=== PATIENT | female | born 1990 | race Caucasian/White ===

== ENCOUNTER 2019-05-12 01:31 | Day surgery (SDC) | payer OTHER, SELFPAY ==
[2019-05-07 09:20] VITALS: BMI 28.1
--- NOTE | 2019-05-12 11:42 | PM.IMHP ---
H&P: HPI History of Present Illness Chief complaint: Irregular Bleeding Narrative: 28 y/o who is breast feeding her 3 month old. She is having heavy episodes of vaginal bleeding lasting 3-5 days each, occurring every 2 weeks. She takes Micronor. Ultrasound exam in the office demonstrates an unremarkable endometrium and functional type changes within both ovaries. Review of Systems Review of Systems: All systems reviewed & are unremarkable except as noted in HPI and below PMFSH Past Medical History Medical History (Updated 05/12/19 @ 11:51 by Bridger Baron MD) Kidney stones Post depression Surgical History Surgical History Hx of cholecystectomy Family History Family History Sibling Diabetes type I Neurofibromatosis type 1-like syndrome Son Genetic disorder Social History Social History Smoking status: Never smoker Substance use: never Gender identity (if verbalized by the patient): Female Spiritual care concerns: No Comments Past OB: x 3, largest 8#7oz. 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 No history of STI or of abnormal pap. Additional Past Medical History: had a blood clot in a vessel in her chest. This was not a DVT and did not require anticoagulation. Negative for Factor V Leiden and Prothrombin [id number] gene mutations. Meds Home Medications and Allergies Home Medications Medication Instructions Recorded Confirmed Type 1 tablet PO DAILY 01/30/19 05/07/19 History acetaminophen [Mapap 650 mg PO Q6H PRN #30 tablet 02/01/19 05/07/19 Rx (acetaminophen)] ibuprofen 600 mg PO Q6H PRN #30 tablet 02/01/19 05/07/19 Rx lanolin [Thl-A-Lmkqal] 1 applic TOPICAL PRN PRN #1 g 02/01/19 05/07/19 Rx Allergies Allergy/AdvReac Type Severity Reaction Status Date / Time No Known Allergies Allergy Unverified 05/07/19 09:20 Exam Const: Orientation/consciousness: patient oriented x3 Other: Well-developed, well-nourished female in no acute distress. Neck: Thyroid: thyroid normal Lymphatic: no lymphadenopathy noted (in neck, axilla or inguinal nodes) Resp: Effort & Inspection: normal respiratory effort Auscultation: clear to auscultation bilaterally Cardio: Rate: regular rate Rhythm: regular rhythm Heart sounds: S1 normal heart sound present and S2 normal heart sound present GI: Other: ABD: Soft, nontender, nondistended. No guarding or rebound tenderness. No hepatosplenomegaly. : General: Yes no CVA tenderness Other: External genitalia: normal female hair distribution, without lesion. Urethral meatus: no lesion, non prolapsed. Bladder: no mass, nontender Vagina: well-estrogenized, without lesion or discharge. No cystocele or rectocele. Cervix: no lesion or discharge. Uterus: small, anteverted, freely mobile, nontender Adnexa: no mass or tenderness. Anus/perineum: no lesions, nontender Back/Spine/Pelvis: Back: no CVA tenderness Skin: General skin exam: normal color and no rashes or lesions noted Neuro: General: patient oriented x3 Extrem: Other: Extremities: nontender with no edema Psych: Mental Status: mental status grossly normal Affect: normal affect Assessment and Plan Assessment and plan (1) Episode of heavy vaginal bleeding: Code(s): N93.9 - Abnormal uterine and vaginal bleeding, unspecified Status: Acute Assessment and Plan: Offered dilation and sharp curettage. She understands risks of surgery to include risks of anesthesia, risks of pain, infection, bleeding, blood products, thromboembolic phenomena and damage to adjacent structures such as bowel, bladder, ureters, blood vessels and nerves. She understands all these risks and elects to proceed with surgery.
[2019-05-12] MEDS: LACTATED RINGERS 1,000 ML 30 ML IV CONT ×2 (13:24→15:32)
[2019-05-12 13:46] VITALS: BP 124/67; PULSE 72; RESP 20; TEMP 36.4; O2SAT 100
--- NOTE | 2019-05-12 13:53 | WPDANESEPPF ---
Anes - Initial Pre Proc Eval Procedure: Operation Date: 05/12/19 14:00 Proposed Procedures p Hysteroscopy, Dilation and Curettage - Bridger Baron MD Date/Time: 05/12/19 13:53 Surgeon: Bridger Baron MD Pre Op Diagnosis: Irregular Bleeding Patient Data Age: 28 Gender: F Height: 1.7 m Weight: 82.4 kg Last Vital Signs Temp 36.4 C L 05/12/19 13:46 Pulse 72 05/12/19 13:46 Resp 20 05/12/19 13:46 BP 124/67 05/12/19 13:46 Pulse Ox 100 05/12/19 13:46 Allergies Allergy/AdvReac Type Severity Reaction Status Date / Time No Known Allergies Allergy Unverified 05/07/19 09:20 Home Medications Medication Instructions Recorded Confirmed Type 1 tablet PO DAILY 01/30/19 05/12/19 History acetaminophen [Mapap 650 mg PO Q6H PRN #30 tablet 02/01/19 05/12/19 Rx (acetaminophen)] ibuprofen 600 mg PO Q6H PRN #30 tablet 02/01/19 05/12/19 Rx lanolin [Qsi-P-Fihbll] 1 applic TOPICAL PRN PRN #1 g 02/01/19 05/12/19 Rx Patient hx anesthesia problems: none Family hx anesthesia problems: none PMFSH Past Medical History Medical History (Updated 05/12/19 @ 11:51 by Bridger Baron MD) Kidney stones Post depression Surgical History Surgical History Hx of cholecystectomy Family History Family History Sibling Diabetes type I Neurofibromatosis type 1-like syndrome Son Genetic disorder Social History Social History Smoking status: Never smoker Substance use: never Gender identity (if verbalized by the patient): Female Spiritual care concerns: No Anes - Eval Final PreProcedure Day of Procedure 05/12/19 13:53 Patient weight: overweight Heart: regular rate and rhythm Lungs: clear to auscultation and normal air movement Airway: Mallampati scale class II Neurological: alert and oriented Last oral intake: >/= 8 hours ASA classification: II Emergent: no Anesthetic plan: proceed Anesthesia type and monitoring: general GIVS and standard monitoring Informed Consent: The patient's anesthetic plan and its attendant risks and benefits were discussed with the patient/family/POA. Questions were solicited and answers provided to the satisfaction of the patient/family/POA.
[2019-05-12] MEDS: KETOROLAC 30 MG/ML VIAL (*BKC) 15 MG IV PUSH (15:10)
--- NOTE | 2019-05-12 15:31 | PM.PROC ---
Procedure Note - Detailed Date of procedure: 05/12/19 Pre-op diagnosis: Irregular Bleeding Menometrorrhagia Post-op diagnosis: same Procedure performed: Hysteroscopy D&C Description of procedure: The patient was taken to the operating room where she was prepared and draped in the usual sterile fashion in the dorsal lithotomy position. The bladder was drained with a red rubber catheter. A sterile speculum was placed into the vagina. The anterior lip of the cervix was grasped with single-tooth tenaculum. Ten mL of 1% lidocaine was administered in a paracervical block. The cervix was then gently dilated using Hegar dilators until a 7 mm dilator could be passed. Hysteroscopy was performed using sterile saline as a distention medium. Findings are as noted above. Sharp curettage was then performed, and endometrial curettings were collected on a Telfa pad and passed off to be sent to pathology. Hemostasis was excellent. Sponge, lap, needle and instrument counts were correct. The patient was awakened and taken to the recovery room in stable condition. I was present and scrubbed through the entire procedure. Implants: None Anesthesia: MAC and local (paracervical block) Surgeon: Bridger Baron MD Estimated blood loss (mL): 5 Drains: No Packing: No Pathology: yes (endometrial curettings) Complications: None Condition: stable Disposition: PACU Findings: Endometrial tissue was thick. Otherwise, the endometrial cavity was unremarkable. Both tubal ostia were seen.
[2019-05-12 15:32] VITALS: BP 122/84; PULSE 107; RESP 16; O2SAT 99
[2019-05-12 16:00] VITALS: BP 102/58; PULSE 68; RESP 16
[2019-05-12 16:25] VITALS: BP 102/58; PULSE 62; RESP 16
== END 2019-05-12 16:32 | disposition home or self-care (01) ==
PROVIDERS: Visit Provider Obstetrics & Gynecology
PROC: 0U5B8ZZ Destruction of Endometrium, Via Natural or Artificial Opening Endoscopic (ICD-10-PCS; CPT 58563; principal; 2019-05-12 14:00)
DX: N92.1 Excessive and frequent menstruation with irregular cycle (principal)
CPT/HCPCS: 58558; 88305; A9270; J0131; J1100; J1885; J2250; J2405; J2704; J3010; J7030; J7120

== ENCOUNTER 2020-12-15 06:29 | Inpatient (IN) | payer BC, SELFPAY ==
[2020-12-15] VITALS (104 sets, daily range): BP systolic 84–132; BP diastolic 52–98; PULSE 40–112; RESP 18–20; TEMP 36.1–36.6; O2SAT 94–100; BMI 31.1
--- NOTE | 2020-12-15 06:46 | LDADM ---
This patient, Lilliana Mead, was admitted to Labor/Delivery/Recovery 104 on 12/15/20 at 06:29. Plans for labor, pain management and were discussed with patient. Patient/family oriented to hospital policies and general routines including ID bracelet, bed and alarms, visiting hours, pain management, procedures, bathroom and other care routines, personal items, smoking policy, room service/diet and guest tray routines, security routines, and visiting hours. Patient/Family are encouraged to report perceived risks to care and to ask questions if they do not understand what they are told or what they should do. See OBIX for further documentation.
[2020-12-15] MEDS: LACTATED RINGERS 1,000 ML 125 ML IV CONT ×2 (06:57→11:45)
[2020-12-15] MEDS: AMPICILLIN 2 GM/NS 100 ML 2 GM/100 ML BAG IVPB (06:58)
[2020-12-15] MEDS: OXYTOCIN 30 UNITS/NS 500 ML 30 UNITS/500 ML BAG IV CONT (06:58)
[2020-12-15 07:14] LABS: Basophils Absolute Auto 0.1 K/mm3 (0.0-0.1); Basophils Percent Auto 0.6 % (0.2-1.2); Eosinophils Absolute Auto 0.1 K/mm3 (0-0.3); Eosinophils Percent Auto 1.1 % (0-4.4); Hematocrit 36.8 % (37.0-47.0); Hemoglobin 12.2 g/dL (12.0-15.0); Immature Granulocyte Absolute 0.07 K/mm3 (0.00-0.031); Immature Granulocyte Percent A 0.6 % (0-0.5); Lymphocytes Absolute Auto 2.66 K/mm3 (0.9-3.2); Lymphocytes Percent Auto 23.1 % (18.3-44.2); Mean Corpuscular HGB Conc 33.2 g/dl (32-36); Mean Corpuscular Volume 84.4 fl (80-100); Mean Platelet Volume 11.3 fl (7.4-10.4); Monocytes Absolute Auto 0.8 K/mm3 (0.1-0.6); Monocytes Percent Auto 6.6 % (2.6-8.5); Neutrophils Absolute Auto 7.8 K/mm3 (1.3-6.7); Platelet Count Result 284 k/mm3 (150-375); Red Blood Count 4.36 M/mm3 (4.2-5.4); Red Cell Distribution Width 14.1 % (11.5-14.5); White Blood Count 11.5 K/mm3 (4.5-10.0)
--- NOTE | 2020-12-15 08:39 | WPDOBADMIT ---
Obstetrics - Admit Note Admission Note: record reviewed. Additions to the history and/or subsequent changes in the physical findings follow. 30 y/o at 39 weeks here for scheduled induction of labor. GBS pos. otherwise uncomplicated. AVSS NST reactive TOCO: contractions every 3 min ABD soft, nontender, gravid, vertex EXT nontender Cervix 2/80/-2. AROM with clear fluid. A: IUP at term, desiring induction of labor. GBS pos. P: Oxytocin. Anticipate .
[2020-12-15] MEDS: AMPICILLIN 1 GM/NS 50 ML 1 GM/50 ML BAG IVPB ×2 (11:00→14:53)
[2020-12-15 11:51] LABS: Rapid Plasma Reagin Non-Reactive (NonReactive)
--- NOTE | 2020-12-15 12:16 | WPDANESEPP ---
Anes - Eval Pre Procedure Procedure: labor Epidural Date/Time: 12/15/20 12:16 Surgeon: Loraine Preop Diagnosis: Labor Pain Pre Op Diagnosis: IOL Patient Data Age: 30 Gender: F Height: 1.7 m Weight: 90 kg Last Vital Signs Temp 36.2 C L 12/15/20 11:01 Pulse 76 12/15/20 12:15 Resp 18 12/15/20 11:01 BP 105/77 12/15/20 12:15 Pulse Ox 99 12/15/20 12:11 Allergies Allergy/AdvReac Type Severity Reaction Status Date / Time No Known Allergies Allergy Unverified 05/07/19 09:20 Home Medications Medication Instructions Recorded Confirmed Type PNV cmb#95-ferrous fumarate-FA 1 tablet PO DAILY 12/02/20 12/15/20 History [] Laboratory Tests 12/15/20 12/15/20 12/15/20 06:44 06:44 06:44 WBC 11.5 K/mm3 H K/mm3 (4.5-10.0) RBC 4.36 M/mm3 M/mm3 (4.2-5.4) Hgb 12.2 g/dL g/dL (12.0-15.0) Hct 36.8 % L % (37.0-47.0) MCV 84.4 fl fl (80-100) MCH 28.0 pg pg (26-34) MCHC 33.2 g/dl g/dl (32-36) RDW 14.1 % % (11.5-14.5) Plt Count 284 k/mm3 k/mm3 (150-375) MPV 11.3 fl H fl (7.4-10.4) Immature Gran % (Auto) 0.6 % H % (0-0.5) Neut % (Auto) 68.0 % % (45.5-73.1) Lymph % (Auto) 23.1 % % (18.3-44.2) [place] % (Auto) 6.6 % % (2.6-8.5) Eos % (Auto) 1.1 % % (0-4.4) Baso % (Auto) 0.6 % % (0.2-1.2) Lymph # (Auto) 2.66 K/mm3 K/mm3 (0.9-3.2) [place] # (Auto) 0.8 K/mm3 H K/mm3 (0.1-0.6) Eos # (Auto) 0.1 K/mm3 K/mm3 (0-0.3) Baso # (Auto) 0.1 K/mm3 K/mm3 (0.0-0.1) Abs Immat Gran (auto) 0.07 K/mm3 H K/mm3 (0.00-0.031) Absolute Neuts (auto) 7.8 K/mm3 H K/mm3 (1.3-6.7) Absolute Nucleated RBC 0.0 K/mm3 K/mm3 (0.0-0.012) Nucleated RBC % 0.0 % % (0.0-0.2) RPR Non-reactive (NonReactive) Blood Type A Positive Antibody Screen Negative : gestational age (, ANTONI 12/22/20) Patient hx anesthesia problems: none Family hx anesthesia problems: none Results Review: All pre-operative results and documents have been reviewed as part of the pre-operative evaluation. [facility] Past Medical History Medical History Kidney stones Post depression Surgical History Surgical History Hx of cholecystectomy Family History Family History Sibling Diabetes type I Neurofibromatosis type 1-like syndrome Son Genetic disorder Social History Social History Smoking status: Never smoker Substance use: never Gender identity (if verbalized by the patient): Female Spiritual care concerns: No Exam Day of Procedure 12/15/20 12:16 Patient weight: normal Heart: regular rate and rhythm Lungs: normal air movement Airway: Mallampati scale class II Neurological: alert and oriented
--- NOTE | 2020-12-15 12:38 | PM.OBPNLAB ---
Pain Control Date/time seen: 12/15/20 12:38 Comments: Getting more comfortable with epidural Pelvic Exam Dilation (cm): 4 Effacement (%): 50 station: -2 Contractions Contraction frequency: 3 Contraction pattern: Regular Status status: Category l Assessment and Plan Plan: continuous present management
--- NOTE | 2020-12-15 15:46 | PM.OBPRVD ---
OB - Delivery Note Procedure Delivery date: 12/15/20 Procedure: Induction of labor with Induction method: AROM and per pitocin protocol Delivery monitor: external FHT, external uterine and internal uterine Route of delivery: Laceration Description: Perineal - 1st Degree Delivery repair: vicryl (3-0) Specimen: Yes (cord blood) Quantitative Blood Loss (ml): 45 Anesthesia type: Epidural Disposition: PACU Complications: None Narrative: 30 y/o at 39 weeks gestation who presented to the hospital for induction of labor. She received ampicillin for GBS colonization. Oxytocin was administered intravenously. Amniotomy was performed with return of clear fluid. She received an epidural for pain control. Her labor progressed and her cervix dilated completely. She pushed with good effort and delivered the 's head to the perineum. A loose nuchal cord was splinted and the body delivered. The cord was reduced. The nose and mouth were bulb suctioned. After a delay, the cord was clamped and cut. The was handed off the field. Cord blood was collected. The placenta delivered spontaneously and was grossly normal in appearance. The usual 3 vessel cord was noted. A first degree midline perineal laceration was sustained. This was reapproximated using 3 0 Vicryl in interrupted, figure of eight fashion. Excellent hemostasis resulted as did excellent reapproximation of the normal anatomy. Needle and instrument counts were correct. The patient was taken to recovery room in stable condition. The went to the nursery in stable condition. I was present and scrubbed for the entire delivery. Baby Date of : 12/15/20 Time of : 15:34 Weeks of gestation at delivery: 39 Infant gender: Male Weight (pounds): 7 Weight (ounces): 15 presentation: vertex position: Left Occiput Anterior Placenta delivery description: Spontaneous and Normal Configuration cord vessel description: 3 Vessels, Nuchal Cord and Delayed Cord Clamping score one minute: 9 score five minutes: 9
--- NOTE | 2020-12-15 15:49 | PM.OBDSVD ---
DS: Admitting Diagnosis Discharge Date 12/15/20 Admitting Diagnosis IUP at 39 weeks Favorable cervix GBS colonization DS: Discharge Diagnosis Discharge Diagnosis (1) (normal spontaneous vaginal delivery): Code(s): O80 - Encounter for full-term uncomplicated delivery Status: Acute OB - DS: Summary OB Procedures : None OB Procedures Intrapartum: Spontaneous Vag Delivery OB Procedures: : None Time Spent with Patient Time attestation: Total time spent providing and/or coordinating discharge services: DS: Data Data Completed and Pending Labs on day of discharge: Labs from last 24 hours 12/15/20 12/15/20 12/15/20 06:44 06:44 06:44 WBC 11.5 H RBC 4.36 Hgb 12.2 Hct 36.8 L MCV 84.4 MCH 28.0 MCHC 33.2 RDW 14.1 Plt Count 284 MPV 11.3 H Immature Gran % (Auto) 0.6 H Neut % (Auto) 68.0 Lymph % (Auto) 23.1 [place] % (Auto) 6.6 Eos % (Auto) 1.1 Baso % (Auto) 0.6 Lymph # (Auto) 2.66 [place] # (Auto) 0.8 H Eos # (Auto) 0.1 Baso # (Auto) 0.1 Abs Immat Gran (auto) 0.07 H Absolute Neuts (auto) 7.8 H Absolute Nucleated RBC 0.0 Nucleated RBC % 0.0 RPR Non-reactive Blood Type A Positive Antibody Screen Negative Discharge Plan Discharge Attending physician on discharge: Bridger Baron Discharging Clinician: Bridger Baron Patient Disposition: Home, Self-Care Activity: pelvic rest Diet: regular Discharge Instructions: Education: Mom and Baby Guide Given to: Mother Follow-Up: Call your delivering provider's office for an appointment to be seen in: 6 Weeks Mom and baby should come to the [facility] for the follow-up appointment. Appointment Date/Time: Saturday, December 19, 2020 at 9:00 a.m. What to expect at your follow-up visit: Blood Pressure Check Physical Assessment Call [phone] if you are unable to keep your appointment time. BREAST CARE: * Wear a snug supportive bra. * For engorgement discomfort: Breast Feeding: * Apply warm moist washcloths * Express milk as needed to relieve engorgement * Wear loose clothing * For sore nipples: * Identify correct latch-on * Apply warm moist washcloths before and after nursing * Air dry nipples after nursing * May apply Lansinoh cream to nipples EPISIOTOMY/PERINEAL CARE: * Until bleeding stops, use your maria eugenia bottle after urinating * Change your pad frequently throughout the day * You may take sitz baths several times a day (fill your bathtub with warm water and soak for 20 minutes.) Do NOT bathe in the water * No tub baths until seen by your physician - You may shower ACTIVITY: * Rest as much as possible. * Do not exercise or lift anything heavier than your baby (such as laundry or other children.) * Avoid stairs or driving as much as possible. * Do not put anything into the vagina. No douching, tampons, or sexual activity until seen by physician. NOTIFY PHYSICIAN IF YOU HAVE ANY QUESTIONS OR IF ANY OF THE FOLLOWING SYMPTOMS OCCUR: * If your perineum becomes red, swollen, or more painful than what you have experienced in the hospital. * If your vaginal bleeding becomes foul smelling. * If your vaginal bleeding becomes more heavy than a period or if your bleeding changes from pink to bright red. However, you may pass an occasional walnut-sized clot once or twice for the first week . * If you experience a sharp, shooting pain in you calves. * If you discover a hard, reddened area on your breast or if you experience flu-like symptoms. DIET: * Eat regular, well-balanced meals. * Drink plenty of fluids daily. If , drink to thirst. Call or return if temperature above 100.4? F, increased abdominal pain, increased vaginal bleeding or any new problems. Stand Alone Forms: General Discharge Informa
[2020-12-15] MEDS: OXYTOCIN 30 UNITS/NS 500 ML 30 UNITS/500 ML BAG 125 UNITS IV CONT (16:06)
[2020-12-15] MEDS: IBUPROFEN 600 MG TABLET PO (17:23)
[2020-12-15] MEDS: WITCH HAZEL 40 PADS 1 PAD TOPICAL (17:24)
[2020-12-15] MEDS: BENZOCAINE 20% AER SPR (*SP) 56 GM CAN 1 SPRAY TOPICAL (17:24)
[2020-12-16] VITALS: BP 121/67; PULSE 80; RESP 18; TEMP 36.3; O2SAT 99
[2020-12-16] MEDS: IBUPROFEN 600 MG TABLET PO ×3 (02:46→15:03)
[2020-12-16 04:24] VITALS: BP 111/73; PULSE 92; RESP 18; TEMP 36.8; O2SAT 100
[2020-12-16 05:23] LABS: Hematocrit 33.7 % (37.0-47.0); Hemoglobin 11.2 g/dL (12.0-15.0)
[2020-12-16 08:00] VITALS: PULSE 70; RESP 16; O2SAT 98
[2020-12-16 08:30] VITALS: BP 115/74; PULSE 70; RESP 16; TEMP 36.4; O2SAT 98
[2020-12-16] MEDS: MULTIVIT/MIN/PREN/FOL AC/IRON TABLET 1 TAB PO (09:02)
--- NOTE | 2020-12-16 10:37 | PM.OBPNVD ---
OB - PN: Subj Subjective Date/time seen: 12/16/20 10:37 Narrative: Pain OK. Would like circumcision for son. OB - PN: Obj Data Labs CBC & Chem 7: 12/16/20 03:24 Labs: Laboratory Results - last 24 hr 12/15/20 12/16/20 06:44 03:24 Hgb 11.2 L Hct 33.7 L RPR Non-reactive OB - PN A/P Plan Comments: A: PPD#1, doing well. P: Routine care. Reviewed circ. Plan home tomorrow. Exam Psych: Other: AVSS ABD soft, nontender, fundus firm EXT nontender
[2020-12-16 12:00] VITALS: BP 115/77; PULSE 80; RESP 16; TEMP 36.6; O2SAT 98
[2020-12-16 18:40] VITALS: BP 117/73; PULSE 78; RESP 16; TEMP 36.8
[2020-12-17] MEDS: DOCUSATE SODIUM 100 MG CAPSULE PO (07:19)
[2020-12-17] MEDS: MULTIVIT/MIN/PREN/FOL AC/IRON TABLET 1 TAB PO (07:20)
[2020-12-17 07:33] VITALS: BP 119/78; PULSE 70; RESP 16; TEMP 36.4; O2SAT 99
[2020-12-17 07:34] VITALS: PULSE 70; RESP 16; O2SAT 99
--- NOTE | 2020-12-17 07:53 | PC.NURSE ---
Patient was given the opportunity to view the discharge video Mother & Baby Care, The First Two Weeks and to ask questions. Patient declined viewing the video and has been given the mother/baby guide for home reference.
[2020-12-19 08:35] VITALS: BP 121/75; PULSE 86; RESP 16; TEMP 37; O2SAT 99
== END 2020-12-17 11:15 | disposition home or self-care (01) | DRG 807 ==
LOC: ANHLDR 15:50 → ANHOB2 20:06
PROVIDERS: Admitting Provider Obstetrics & Gynecology; Visit Provider Obstetrics & Gynecology
DX: O99.824 Streptococcus B carrier state complicating childbirth (principal); Z37.0 Single live birth; O69.81X0 Labor and delivery complicated by cord around neck, without compression, not applicable or unspecified; O70.0 First degree perineal laceration during delivery; Z3A.39 39 weeks gestation of pregnancy
CPT/HCPCS: 36415; 85014; 85018; 85025; 86592; 86850; 86900; 86901; A9270; J0290; J2590; J7120

== ENCOUNTER 2022-01-19 15:11 | Emergency (ER) | payer BC, SELFPAY ==
[2022-01-19 15:23] VITALS: BP 121/72; PULSE 90; RESP 18; TEMP 36.3; O2SAT 99
--- NOTE | 2022-01-19 15:33 | ED.EYEPROB ---
HPI - Eye Problem General Chief complaint: Eye Problems Stated complaint: Lt Eye Irritation Time Seen by Provider: 01/19/22 15:30 Source: patient Mode of arrival: ambulatory Limitations: no limitations History of Present Illness HPI Narrative: Ms. Mead is a 31-year-old female patient presenting to clinic today with complaints of possible conjunctivitis of the left eye. She reports that her kids have had conjunctivitis over the week. States that she is having some eye pain with yellow drainage. Related Data Home Medications Medication Instructions Recorded Confirmed vit no.95-ferrous 1 tablet PO DAILY 12/02/20 12/15/20 fumarate 28 mg-folic acid 800 mcg tablet () Allergies Allergy/AdvReac Type Severity Reaction Status Date / Time No Known Allergies Allergy Verified 01/19/22 15:44 Review of Systems Review of Systems: Pertinent positives per HPI. Patient denies any fever, chills, rash, headache, visual changes, dizziness, cough, runny nose, sore throat, shortness of breath, chest pain, palpitations, nausea, vomiting, diarrhea, constipation, abdominal pain, or any urinary issues. PMFSH Past Medical History Medical History Kidney stones Post depression Surgical History Surgical History Hx of cholecystectomy Family History Family History Sibling Diabetes type I Neurofibromatosis type 1-like syndrome Son Genetic disorder Social History Social History Smoking status: Never smoker Substance use: never Gender identity (if verbalized by the patient): Female Spiritual care concerns: No Comments At the time of my signature, I reviewed and agree with the nursing past medical, surgical, social, and family history. There is no relevant family history pertinent to the patient complaint. Exam Narrative: General: Well-developed, well nourished, in no apparent distress Head: Normocephalic, atraumatic Eyes: Pupils equally round and reactive to light bilaterally, EOM intact, right sclera and conjunctive clear, no discharge, left sclera and conjunctiva injected with yellowish mucopurulent discharge coming from the eye, right lids normal, left eyelids mildly swelling Ears: TMs intact and clear, ear canals clear, no drainage, grossly hearing normal. Nose: Nares patent, no discharge, no inflammation, no sinus tenderness. Mouth: Oropharynx without lesions or masses, good dentition, MMM. Neck: Supple, trachea midline, no enlargement of anterior or posterior cervical nodes, no thyroid masses or goiter palpable. Cardio: Regular rate and rhythm, s1 and s2 normal, no murmur appreciated. Resp: Clear to auscultation bilaterally anteriorly and posteriorly, no rhonchi, rales, wheezing or rubs Course Course Emergency Course: Portions of this record may have been created with voice recognition software. Level of Care: Express Care Visit Vital Signs Vital signs: Vital Signs Temperature 36.3 C L 01/19/22 15:23 Pulse Rate 90 01/19/22 15:23 Respiratory Rate 18 01/19/22 15:23 Blood Pressure 121/72 01/19/22 15:23 Pulse Oximetry 99 01/19/22 15:23 Oxygen Delivery Room Air 01/19/22 15:23 Temperature 36.3 C L 01/19/22 15:23 Pulse Rate 90 01/19/22 15:23 Respiratory Rate 18 01/19/22 15:23 Blood Pressure 121/72 01/19/22 15:23 Pulse Oximetry 99 01/19/22 15:23 Oxygen Delivery Room Air 01/19/22 15:23 Vital signs reviewed MDM - Eye Problem MDM Narrative Medical decision making narrative: At the time of visit patient is resting comfortably on the exam table. I suspect patient has left-sided conjunctivitis. Prescription for ofloxacin eye drops was sent to the pharmacy as she does wear contacts. Supportive
== END 2022-01-19 15:40 | disposition home or self-care (01) ==
PROVIDERS: Emergency Provider Nurse Practitioner Family
DX: H10.9 Unspecified conjunctivitis (principal)
CPT/HCPCS: 99213; G0463

== ENCOUNTER 2022-02-15 17:08 | Emergency (ER) | payer BC, SELFPAY ==
[2022-02-15 17:34] VITALS: BP 117/74; PULSE 96; RESP 18; TEMP 36.3; O2SAT 100
--- NOTE | 2022-02-15 17:41 | ED.URI ---
HPI - URI/Sore Throat General Chief Complaint: Upper Respiratory Infection Stated Complaint: sorethroat Time Seen by Provider: 02/15/22 17:45 Source: patient and RN notes reviewed Mode of arrival: ambulatory Limitations: no limitations History of Present Illness HPI Narrative: 31-year-old female presents concern for sore throat, nausea. She reports history of strep throat. She denies nasal congestion, rhinorrhea, cough, shortness of breath. Denies fever body aches. MD elicited complaint: sore throat Related Data Home Medications Medication Instructions Recorded Confirmed acyclovir 400 mg tablet 400 mg PO BID 02/15/22 02/15/22 Allergies Allergy/AdvReac Type Severity Reaction Status Date / Time No Known Allergies Allergy Verified 02/15/22 17:39 Review of Systems Review of Systems: CONSTITUTIONAL: Denies malaise, chills, sweats, or fever. EYES: Denies visual changes, redness, or discharge. ENT: Denies rhinorrhea, congestion, sinus pain, otalgia. Reports sore throat. CARDIOVASCULAR: Denies chest pain, palpitations, or edema. RESPIRATORY: Reports cough. Denies dyspnea. GASTROINTESTINAL: Denies abdominal pain, vomiting, diarrhea. Reports nausea SKIN: Denies rash or itching. MUSCULOSKELETAL: Denies myalgia. NEUROLOGIC: Denies headache. All systems reviewed & are unremarkable except as noted in HPI and below PMFSH Past Medical History Medical History Kidney stones Post depression Surgical History Surgical History Hx of cholecystectomy Family History Family History Sibling Diabetes type I Neurofibromatosis type 1-like syndrome Son Genetic disorder Social History Social History Smoking status: Never smoker Substance use: never Gender identity (if verbalized by the patient): Female Spiritual care concerns: No Comments At time of signature, agree with nursing past medical, surgical, social and family history. There is no relevant family history pertinent to the presenting complaint Exam Narrative: GENERAL: Well-appearing, well-nourished, and in no acute distress. HEAD: Normocephalic EYES: PERRLA, conjunctivae clear ENT: Nares clear. Mucous membranes moist. TM pearly graham with sharp light reflex bilaterally; no tragal tenderness. Oropharynx erythematous without lesions. Tonsils enlarged with yellow exudate, no drooling, no hoarseness, no trismus, uvula midline. NECK: Supple. No lymphadenopathy CHEST: Clear to auscultation, breath sounds equal. No wheezing, rhonchi, rales, or stridor. No respiratory distress, speaks in full sentences. HEART: Regular rate and rhythm. No murmur heard. SKIN: Warm, dry, no rash. NEURO: Alert and oriented x3. PSYCH: Normal mood and affect Course Course Emergency Course: Patient is aware of diagnosis, understands and agrees to treatment plan. Anticipatory guidance given. Patient agrees to follow-up as directed and is aware of reasons to seek care at the emergency department. Portions of this record may have been created with voice recognition software Level of Care: Express Care Visit Vital Signs Vital signs: Vital Signs Temperature 97.4 F L 02/15/22 17:34 Pulse Rate 96 02/15/22 17:34 Respiratory Rate 18 02/15/22 17:34 Blood Pressure 117/74 02/15/22 17:34 Pulse Oximetry 100 02/15/22 17:34 Oxygen Delivery Room Air 02/15/22 17:34 Temperature 97.4 F L 02/15/22 17:34 Pulse Rate 96 02/15/22 17:34 Respiratory Rate 18 02/15/22 17:34 Blood Pressure 117/74 02/15/22 17:34 Pulse Oximetry 100 02/15/22 17:34 Oxygen Delivery Room Air 02/15/22 17:34 Reviewed. MDM - URI/Sore Throat MDM Narrative Medical decision making narrative: Differential diagnosis considered: [facility] viru
== END 2022-02-15 17:55 | disposition home or self-care (01) ==
PROVIDERS: Emergency Provider Nurse Practitioner; PCP Physician Assistant
DX: J03.90 Acute tonsillitis, unspecified (principal)
CPT/HCPCS: 87081; 87147; 99213; G0463

== ENCOUNTER 2022-06-20 18:37 | Emergency (ER) | payer BC, SELFPAY ==
--- NOTE | 2022-06-20 18:40 | ED.URI ---
HPI - URI/Sore Throat General Chief Complaint: Upper Respiratory Infection Stated Complaint: Cough,Congestion,Sore Throat Source: patient Mode of arrival: ambulatory Limitations: no limitations History of Present Illness HPI Narrative: Patient is a 31-year-old female that presents with sinus pressure, sore throat, cough, ear pressure, fever, fatigue and congestion for a week. Reports congestion and sinus pressure are worsening. Daughter is currently getting treatment for strep. States this does not feel like when she has had strep in the past. Reports tonsils are always enlarged. Has been taking Tylenol and Sudafed for symptoms with mild to no relief. Related Data Home Medications Medication Instructions Recorded Confirmed acyclovir 400 mg tablet 400 mg PO BID 02/15/22 02/15/22 albuterol sulfate 90 mcg/actuation inhalation 06/20/22 aerosol inhaler estradiol 2 mg tablet mg 06/20/22 Allergies Allergy/AdvReac Type Severity Reaction Status Date / Time No Known Allergies Allergy Verified 02/15/22 17:39 Review of Systems Review of Systems: All systems reviewed & are unremarkable except as noted in HPI and below Constitutional: Constitutional: Denies body ache(s), Reports fatigue, Reports fever(s), Denies headache(s), Denies malaise and Denies weakness Eyes: Eyes: Denies loss of vision ENT: Reports otalgia, Denies headache(s), Reports nasal congestion, Reports nasal discharge, Reports sinus pain, Reports sinus pressure and Reports sore throat Cardiovascular: Cardiovascular: Denies chest pain, Denies irregular heart rhythm and Denies dyspnea Respiratory: Respiratory: Reports cough and Denies dyspnea Gastrointestinal: Gastrointestinal: Denies abdominal pain, Denies melena, Denies hematochezia, Denies diarrhea, Denies nausea and Denies vomiting Musculoskeletal: Musculoskeletal: Denies back pain, Denies myalgias and Denies arthralgias Integumentary/Breasts: Skin/Breast: Denies pruritus and Denies rash Neurologic: Denies headache(s), Denies loss of vision and Denies weakness Psychiatric: Psychiatric: Reports no additional psychiatric complaints PMFSH Past Medical History Medical History Kidney stones Post depression Surgical History Surgical History Hx of cholecystectomy Family History Family History Sibling Diabetes type I Neurofibromatosis type 1-like syndrome Son Genetic disorder Social History Social History Smoking status: Never smoker Substance use: never Gender identity (if verbalized by the patient): Female Spiritual care concerns: No Comments At time of signature, agree with nursing past medical, surgical, social and family history. There is no relevant family history pertinent to the presenting complaint. Exam Const: General: cooperative, healthy appearing, comfortable, no acute distress and well nourished Nutritional Appearance: well nourished Orientation/consciousness: patient oriented x3 Limitations: no limitations HENMT: Head: normal to inspection, normocephalic and atraumatic Ears: hearing grossly normal bilaterally, external ears normal and TM's normal bilaterally Face/Nose/Sinus: Normal external nose present, Abnormal mucous membranes and turbinates present erythematous bilateral, normal facial exam, face symmetric and Facial tenderness on exam of face and sinuses Face and sinus: normal facial exam, sinuses nontender and face symmetric Mouth: Yes Normal oral and palatal mucosa present, Yes lip normal and Yes moist mucous membranes Teeth and gingiva: dentition normal Throat: posterior oropharynx normal, uvula midline and abnormal tonsil bilateral hypertrophy 4+ Eyes: General: appearance normal, both eyes and all related
[2022-06-20 18:45] VITALS: BP 120/69; PULSE 77; RESP 16; TEMP 36.6; O2SAT 100
== END 2022-06-20 19:03 | disposition home or self-care (01) ==
PROVIDERS: Emergency Provider Nurse Practitioner Family
DX: J32.9 Chronic sinusitis, unspecified (principal); J40 Bronchitis, not specified as acute or chronic
CPT/HCPCS: 99213; G0463